=== PATIENT | male | born 1975 | race American Indian/Alaskan Native ===

== ENCOUNTER 2016-10-14 10:59 | Emergency (ER) | payer MEDICARE, OTHER ==
[2016-10-14 11:12] VITALS: BMI 29.5
[2016-10-14 11:15] VITALS: RESP 16; TEMP 98.1
--- NOTE | 2016-10-14 12:41 | ED PDOC ---
Arrival/HPI - General Chief Complaint: Back Pain Time Seen by Provider: 10/14/16 11:55 Historian: Patient - History of Present Illness Narrative History of Present Illness (Text): 10/14/16 13:08 41yr old male presents today with low back pain. 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 pt states he took his OxyContin at home with some relief. Patient states she was feeling better and went back to work and then was lifting some heavy stuff at work and the back flared up again. He denies numbness weakness or tingling in the 70s. No chest pain or shortness of breath. No abdominal pain. No urinary symptoms. Patient denies bladder or bowel incontinence. No other complaints Past Medical History - Provider Review Nursing Documentation Reviewed: Yes - Travel History Have you recently traveled outside [place] w/in the past 3 mons?: No - Past History Past History: No Previous - Infectious Disease Hx of Infectious Diseases: None - Tetanus Immunization Tetanus Immunization: Unknown - Past Medical History Past Medical History: No Previous - Cardiac Hx Cardiac Disorders: Yes Hx Angina: No Hx Cardiac Arrhythmia: No Hx Circulatory Problems: No Hx Congestive Heart Failure: No Hx Heart Murmur: No Hx Heart Transplant: No Hx Hypertension: Yes Hx Internal Defibrillator: No Hx Mitral Valve Prolapse: No Hx Pacemaker: No Hx Peripheral Edema: No Hx Peripheral Vascular Disease: No - Pulmonary Hx Respiratory Disorders: No Hx Asthma: No Hx Bronchitis: No Hx Chronic Obstructive Pulmonary Disease (COPD): No Hx Emphysema: No Hx Pneumonia: No Hx Respiratory Aspiration: No Hx Respiratory Tract Infection: No Hx Sleep Apnea: No Hx Tuberculosis: No - Neurological Hx Neurological Disorder: No Hx Alzheimer's Disease: No HX Cerebrovascular Accident: No Hx Dementia: No Hx Dizziness: No Hx Meningitis: No Hx Migraine: No Hx Parkinson's Disease: No Hx Seizures: No Hx Transient Ischemic Attacks (TIA): No - HEENT Hx HEENT Disorder: No Hx Blind: No Hx Cataracts: No Hx Deafness: No Hx Difficulty Chewing: No Hx Epistaxis: No Hx Glaucoma: No Hx Macular Degeneration: No - Renal Hx Renal Disorder: No Hx Kidney Stones: No Hx Neurogenic Bladder: No Hx Pyelonephritis: No Hx Renal Cancer: No Hx Renal Failure: No - Endocrine/Metabolic Hx Endocrine Disorders: No Hx Adrenal Cancer: No Hx Diabetes Insipidus: No Hx Diabetes Mellitus Type 1: No Hx Diabetes Mellitus Type 2: No Hx Hyperthyroidism: No Hx Hypothyroidism: No Hx Systemic Lupus Erythematosus: No - Hematological/Oncological Hx Blood Disorders: No Hx AIDS: No Hx Anemia: No Hx Cancer: No Hx Chemotherapy: No Hx Cirrhosis: No Hx Hemophilia: No Hx Hepatitis A: No Hx Hepatitis B: No Hx Hepatitis C: No Hx Metastasis: No Hx Shingles: No Hx Sickle Cell Disease: No Hx Unexplained Bleeding: No - Integumentary Hx Dermatological Disorder: No Hx Basal Cell Carcinoma: No Hx Eczema: No Hx Melanoma: No Hx Psoriasis: No Hx Squamous Cell Carcinoma: No - Musculoskeletal/Rheumatological Hx Musculoskeletal Disorders: Yes Hx Arthritis: No Hx Back Pain: Yes Hx Degenerative Joint Disease: No Hx Falls: No Hx Fractures: No Hx Gout: No Hx Herniated Disk: No Hx Myasthenia Gravis: No Hx Osteoarthritis: No Hx Osteomyelitis: No Hx Osteoporosis: No Hx Rhabdomyolysis: No Hx Spinal Stenosis: No Hx Unsteady Gait: No - Gastrointestinal Hx Gastrointestinal Disorders: No Hx Colostomy: No Hx Crohn's Disease: No Hx Diverticulitis: No Hx Gall Bladder Disease: No Hx Gastroesophageal Reflux: No Hx Ileostomy: No Hx Liver Failure: No Hx Pancreatitis: No HX Swallowing Problems: No - Genitourinary/Gynecological Hx Genitourinary Disorders: No Hx Hematuria: No Hx Incontinence: No Hx Prostate Problems: No Hx Reproductive Disorders: No Hx Sexually Transmitted Diseases: No Hx Urinary Tract Infection: No - Psychiatric Hx Psychophysiologic Disorder: Yes Hx Bipolar Disorder: Yes Hx Depression: Yes Hx Schizophrenia: Yes Hx Substance Use: No - Past Surgical History Past Surgical History: No Previous - Surgical History Hx Amputation: No Hx Appendectomy: No Hx Cardiac Catheterization: No Hx Cholecystectomy: No Hx Coronary Stent: No Hx Gastric Bypass Surgery: No Hx Hysterectomy: No Hx Joint Replacement: No Hx Kidney Transplant: No Hx Liver Transplant: No Hx Mastectomy: No Hx Musculoskeletal Surgery: No Hx Open Heart Surgery: No Hx Orthopedic Surgery: No Hx Splenectomy: No Hx Valve Replacement: No - Anesthesia Hx Anesthesia: No - Suicidal Assessment Feels Threatened In Home Enviroment: No Family/Social History - Physician Review Nursing Documentation Reviewed: Yes Family/Social History: Unknown Family HX Smoking Status: Heavy Smoker > 10 Cigarettes Daily Hx Alcohol Use: No Amount per day: 1 Hx Substance Use: No Hx Substance Use Treatment: No Allergies/Home Meds Allergies/Adverse Reactions: Allergies Penicillins Allergy (Verified 10/14/16 11:11) ANAPHYLAXIS Home Medications: Home Meds Medication Instructions Recorded Confirmed Risperidone [Risperdal] 2 mg PO DAILY 08/31/16 10/14/16 amLODIPine [Norvasc] 5 mg PO DAILY 08/31/16 10/14/16 Cyclobenzaprine [Flexeril] 10 mg PO PRN PRN 10/14/16 10/14/16 oxyCODONE [oxyCODONE Immediate 30 mg PO TID 10/14/16 10/14/16 Release Tab] Review of Systems - Review of Systems Constitutional: absent: Fatigue, Fevers Respiratory: absent: SOB, Cough Cardiovascular: absent: Chest Pain, Palpitations Gastrointestinal: absent: Abdominal Pain, Diarrhea, Nausea, Vomiting Genitourinary Male: absent: Dysuria, Frequency, Hematuria Musculoskeletal: Back Pain. absent: Arthralgias, Neck Pain Skin: absent: Rash, Pruritis Neurological: absent: Headache, Dizziness Psychiatric: absent: Anxiety, Depression Physical Exam Vital Signs Reviewed: Yes Vital Signs Temp Pulse Resp BP Pulse Ox 10/14/16 11:11 98.1 F 94 H 16 135/90 98 Temperature: Afebrile Blood Pressure: Normal Pulse: Regular Respiratory Rate: Normal Appearance: Positive for: Well-Appearing, Non-Toxic, Comfortable Pain Distress: None Mental Status: Positive for: Alert and Oriented X 3 - Systems Exam Head: Present: Atraumatic Neck: Present: Normal Range of Motion Respiratory/Chest: Present: Clear to Auscultation, Good Air Exchange. No: Respiratory Distress, Accessory Muscle Use Cardiovascular: Present: Regular Rate and Rhythm, Normal S1, S2. No: Murmurs Abdomen: Present: Normal Bowel Sounds. No: Tenderness, Distention, Peritoneal Signs Back: Present: Normal Inspection, Midline Tenderness, Paraspinal Tenderness. No : Pain with Leg Raise Upper Extremity: Present: Normal Inspection Lower Extremity: Present: Normal Inspection Neurological: Present: GCS=15, Speech Normal, Normal Sensory Function, Gait Normal Skin: Present: Warm, Dry, Normal Color. No: Rashes Psychiatric: Present: Alert, Oriented x 3 Medical Decision Making ED Course and Treatment: 10/14/16 13:10 Patient nontoxic well-appearing in no distress with stable vital signs. Toradol, Flexeril Patient reassessment: Feeling better with medications ambulating with a steady gait. Muscle strength 5 out of 5 bilaterally. I advised to followup with the orthopedist within the next 2 days. Return if symptoms worsen persist or new symptoms develop Patient verbalizes understanding of discharge instructions and need for immediate followup. Impression: Back pain Motrin every 6 hours as needed for pain Flexeril one tablet every 8 hours as needed for muscle spasms: May cause drowsiness Followup with the orthopedist within the next 2 days Followup with primary care physician within the next 2 days Return if symptoms worsen persist or if new symptoms develop - Medication Orders Current Medication Orders: Discontinued Medications Cyclobenzaprine HCl (Flexeril) 10 mg PO STAT STA Stop: 10/14/16 11:56 Last Admin: 10/14/16 12:21 Dose: 10 MG Ketorolac Tromethamine (Toradol) 60 mg IM STAT STA Stop: 10/14/16 11:56 Last Admin: 10/14/16 12:21 Dose: 60 MG IM Administration Charges Document 10/14/16 12:21 MD (Rec: 10/14/16 12:21 [id number]) Charges for Administration # of IM Administrations 1 Disposition/Present on Arrival - Present on Arrival Any Indicators Present on Arrival: No History of DVT/PE: No History of Uncontrolled Diabetes: No Urinary Catheter: No History of Decub. Ulcer: No History Surgical Site Infection Following: None - Disposition Have Diagnosis and Disposition been Completed?: Yes Diagnosis: Back pain Disposition: HOME/ ROUTINE Disposition Time: 12:29 Patient Plan: Discharge Patient Problems: Current Active Problems Problem Status Diagnosed Back pain Acute Condition: GOOD Discharge Instructions (ExitCare): Back Pain (ED) Additional Instructions: Motrin every 6 hours as needed for pain Flexeril one tablet every 8 hours as needed for muscle spasms: May cause drowsiness Followup with the orthopedist within the next 2 days Followup with primary care physician within the next 2 days Return if symptoms worsen persist or if new symptoms develop Prescriptions: Cyclobenzaprine [Cyclobenzaprine HCl] 10 mg PO Q8 #10 tab Ibuprofen [Motrin] 600 mg PO Q6H PRN #20 tab PRN Reason: pain/fever reduction Referrals: Adan Traore JD, MD [Primary Care Provider] - Follow up with primary Todd Salguero MD [Staff Provider] - Follow up with primary Angel Clemens III, MD [Medical Doctor] - Follow up with primary Forms: WORK NOTE
[2016-10-14 13:10] VITALS: BP 130/88; PULSE 88; O2SAT 97
== END 2016-10-14 13:11 | disposition home or self-care (01) ==
LOC: ED 10:59
DX: M54.5 Low back pain (principal)
CPT/HCPCS: 96372; 99283; J1885

== ENCOUNTER 2017-02-04 14:03 | Emergency (ER) | payer MEDICAID, MEDICARE ==
[2017-02-04 14:05] VITALS: BMI 29.3
[2017-02-04 14:09] VITALS: BP 148/94; PULSE 87; RESP 18; TEMP 98.1; O2SAT 96
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
== END 2017-02-04 14:55 | disposition left against medical advice (07) ==
LOC: ED 14:03
DX: Z04.71 Encounter for examination and observation following alleged adult physical abuse (principal); Y04.8XXA Assault by other bodily force, initial encounter; Y92.009 Unspecified place in unspecified non-institutional (private) residence as the place of occurrence of the external cause

== ENCOUNTER 2017-04-28 11:51 | Inpatient (IN) | payer MEDICARE, MEDICAID ==
[2017-04-28 11:53] VITALS: BMI 29.3
--- NOTE | 2017-04-28 11:56 | ED PDOC ---
Arrival/HPI - General Chief Complaint: Psychiatric Evaluation Time Seen by Provider: 04/28/17 11:53 Historian: Patient - History of Present Illness Narrative History of Present Illness (Text): 04/28/17 11:54 41 year old male, pmh including htn, psychiatric history including cocaine abuse/depression/bipolar, penicillin allergy, complaining of feeling depression. Pt. stated that he has chronic depression with bipolar, started to drink couple cans of bear this morning, no night sweat, no rash, no homicidal or suicidal ideation, no auditory or visual hallucination, no other medical or psychological complaint. Past Medical History - Provider Review Nursing Documentation Reviewed: Yes - Past History Past History: No Previous - Infectious Disease Hx of Infectious Diseases: None - Tetanus Immunization Tetanus Immunization: Unknown - Past Medical History Past Medical History: No Previous - Cardiac Hx Cardiac Disorders: Yes Hx Angina: No Hx Cardiac Arrhythmia: No Hx Circulatory Problems: No Hx Congestive Heart Failure: No Hx Heart Murmur: No Hx Heart Transplant: No Hx Hypertension: Yes Hx Internal Defibrillator: No Hx Mitral Valve Prolapse: No Hx Pacemaker: No Hx Peripheral Edema: No Hx Peripheral Vascular Disease: No - Pulmonary Hx Respiratory Disorders: No Hx Asthma: No Hx Bronchitis: No Hx Chronic Obstructive Pulmonary Disease (COPD): No Hx Emphysema: No Hx Pneumonia: No Hx Respiratory Aspiration: No Hx Respiratory Tract Infection: No Hx Sleep Apnea: No Hx Tuberculosis: No - Neurological Hx Neurological Disorder: No Hx Alzheimer's Disease: No HX Cerebrovascular Accident: No Hx Dementia: No Hx Dizziness: No Hx Meningitis: No Hx Migraine: No Hx Parkinson's Disease: No Hx Seizures: No Hx Transient Ischemic Attacks (TIA): No - HEENT Hx HEENT Disorder: No Hx Blind: No Hx Cataracts: No Hx Deafness: No Hx Difficulty Chewing: No Hx Epistaxis: No Hx Glaucoma: No Hx Macular Degeneration: No - Renal Hx Renal Disorder: No Hx Kidney Stones: No Hx Neurogenic Bladder: No Hx Pyelonephritis: No Hx Renal Cancer: No Hx Renal Failure: No - Endocrine/Metabolic Hx Endocrine Disorders: No Hx Adrenal Cancer: No Hx Diabetes Insipidus: No Hx Diabetes Mellitus Type 1: No Hx Diabetes Mellitus Type 2: No Hx Hyperthyroidism: No Hx Hypothyroidism: No Hx Systemic Lupus Erythematosus: No - Hematological/Oncological Hx Blood Disorders: No Hx AIDS: No Hx Anemia: No Hx Cancer: No Hx Chemotherapy: No Hx Cirrhosis: No Hx Hemophilia: No Hx Hepatitis A: No Hx Hepatitis B: No Hx Hepatitis C: No Hx Metastasis: No Hx Shingles: No Hx Sickle Cell Disease: No Hx Unexplained Bleeding: No - Integumentary Hx Dermatological Disorder: No Hx Basal Cell Carcinoma: No Hx Eczema: No Hx Melanoma: No Hx Psoriasis: No Hx Squamous Cell Carcinoma: No - Musculoskeletal/Rheumatological Hx Musculoskeletal Disorders: Yes Hx Arthritis: No Hx Back Pain: Yes Hx Degenerative Joint Disease: No Hx Falls: No Hx Fractures: No Hx Gout: No Hx Herniated Disk: No Hx Myasthenia Gravis: No Hx Osteoarthritis: No Hx Osteomyelitis: No Hx Osteoporosis: No Hx Rhabdomyolysis: No Hx Spinal Stenosis: No Hx Unsteady Gait: No - Gastrointestinal Hx Gastrointestinal Disorders: No Hx Colostomy: No Hx Crohn's Disease: No Hx Diverticulitis: No Hx Gall Bladder Disease: No Hx Gastroesophageal Reflux: No Hx Ileostomy: No Hx Liver Failure: No Hx Pancreatitis: No HX Swallowing Problems: No - Genitourinary/Gynecological Hx Genitourinary Disorders: No Hx Hematuria: No Hx Incontinence: No Hx Prostate Problems: No Hx Reproductive Disorders: No Hx Sexually Transmitted Diseases: No Hx Urinary Tract Infection: No - Psychiatric Hx Psychophysiologic Disorder: Yes Hx Bipolar Disorder: Yes Hx Depression: Yes Hx Schizophrenia: Yes Hx Substance Use: No - Past Surgical History Past Surgical History: No Previous - Surgical History Hx Amputation: No Hx Appendectomy: No Hx Cardiac Catheterization: No Hx Cholecystectomy: No Hx Coronary Stent: No Hx Gastric Bypass Surgery: No Hx Hysterectomy: No Hx Joint Replacement: No Hx Kidney Transplant: No Hx Liver Transplant: No Hx Mastectomy: No Hx Musculoskeletal Surgery: No Hx Open Heart Surgery: No Hx Orthopedic Surgery: No Hx Splenectomy: No Hx Valve Replacement: No - Anesthesia Hx Anesthesia: No - Suicidal Assessment Feels Threatened In Home Enviroment: No Family/Social History - Physician Review Nursing Documentation Reviewed: Yes Family/Social History: Unknown Family HX Smoking Status: Heavy Smoker > 10 Cigarettes Daily Hx Alcohol Use: No Amount per day: 1 Hx Substance Use: No Hx Substance Use Treatment: No Allergies/Home Meds Allergies/Adverse Reactions: Allergies Penicillins Allergy (Verified 04/28/17 12:11) ANAPHYLAXIS Home Medications: Home Meds Medication Instructions Recorded Confirmed Unobtainable 04/28/17 04/28/17 Review of Systems - Review of Systems Constitutional: absent: Fatigue, Fevers Eyes: absent: Vision Changes ENT: absent: Hearing Changes Respiratory: absent: SOB, Cough Cardiovascular: absent: Chest Pain, Syncope Gastrointestinal: absent: Abdominal Pain, Diarrhea, Nausea, Vomiting Neurological: absent: Headache, Dizziness Psychiatric: Depression. absent: Suicidal Ideation Physical Exam Vital Signs Reviewed: Yes Vital Signs Temp Pulse Resp BP Pulse Ox 04/28/17 12:28 98.6 F 88 16 138/78 100 Temperature: Afebrile Blood Pressure: Normal Pulse: Regular Respiratory Rate: Normal Appearance: Positive for: Well-Appearing, Non-Toxic, Comfortable Pain Distress: None Mental Status: Positive for: Alert and Oriented X 3 - Systems Exam Head: Present: Atraumatic, Normocephalic Pupils: Present: PERRL Extroacular Muscles: Present: EOMI Conjunctiva: Present: Normal Mouth: Present: Moist Mucous Membranes Neck: Present: Normal Range of Motion Respiratory/Chest: Present: Clear to Auscultation, Good Air Exchange. No: Respiratory Distress, Accessory Muscle Use Cardiovascular: Present: Regular Rate and Rhythm, Normal S1, S2. No: Murmurs Abdomen: Present: Normal Bowel Sounds. No: Tenderness, Distention, Peritoneal Signs Back: Present: Normal Inspection Upper Extremity: Present: Normal Inspection. No: Cyanosis, Edema Lower Extremity: Present: Normal Inspection. No: Edema Neurological: Present: GCS=15, Speech Normal, Motor Func Grossly Intact, Gait Normal, Memory Normal Skin: Present: Warm, Dry, Normal Color. No: Rashes Psychiatric: Present: Alert, Oriented x 3, Normal Insight, Normal Concentration Medical Decision Making ED Course and Treatment: 04/28/17 12:04 -labs/ua/uds/alcohol level -ekg/chest xray -PES notififed and reassess 04/28/17 13:08 -EKG: NSR @ 74 BPM, no ST elevation or depression, T wave inversion noted on the lead III. -Chest xray: no active disease -Labs are non-significant except alcohol 95 -Urinalysis show no UTI -UDS show +cocaine. -Pt. is medically clear and stable at this time for the psychiatric evaluation. 04/28/17 13:40 -Pt. evaluated by the PES Anaise, need to be admitted and the patient agreed to be admitted, need to admit to Dr. Mariela Weiss discussed with Dr. Hester and he will put in the admission. - Lab Interpretations Lab Results: 04/28/17 12:20 04/28/17 12:20 Lab Results 04/28/17 12:20: Alcohol, Quantitative 95 H 04/28/17 12:20: Salicylates < 1 L, Acetaminophen < 10.0 L 04/28/17 12:20: Urine Opiates Screen Negative, Urine Methadone Screen Negative, Ur Barbiturates Screen Negative, Ur Phencyclidine Scrn Negative, Ur Amphetamines Screen Negative, U Benzodiazepines Scrn Negative, U Oth Cocaine Metabols Positive H, U Cannabinoids Screen Negative 04/28/17 12:20: Sodium 146, Potassium 4.0, Chloride 108 H, Carbon Dioxide 26, Anion Gap 16, BUN 12, Creatinine 0.9, Est GFR ( Amer) > 60, Est GFR (Non- Af Amer) > 60, Random Glucose 101, Calcium 9.5, Total Bilirubin 0.8, AST 28, ALT 41, Alkaline Phosphatase 93, Total Protein 7.4, Albumin 4.4, Globulin 3.0, Albumin/Globulin Ratio 1.5 04/28/17 12:20: Urine Color Light yellow, Urine Appearance Clear, Urine pH 6.0, Ur Specific [place] <= 1.005, Urine Protein Negative, Urine Glucose (UA) Negative, Urine Ketones Negative, Urine Blood Negative, Urine Nitrate Negative, Urine Bilirubin Negative, Urine Urobilinogen 0.2, Ur Leukocyte Esterase Negative 04/28/17 12:20: WBC 5.0, RBC 4.06, Hgb 12.7 L, Hct 38.4 L, MCV 94.6, MCH 31.3, MCHC 33.1, RDW 12.8, Plt Count 224, MPV 9.6, Gran % 47.9 L, Lymph % (Auto) 41.3 H, Bell % (Auto) 7.0 H, Eos % (Auto) 3.4, Baso % (Auto) 0.4, Gran # 2.40, Lymph # 2.1, Bell # 0.4, Eos # 0.2, Baso # 0.02 I have reviewed the lab results: Yes Interpretation: Abnormal lab values (alcohol 95) - RAD Interpretation Radiology Orders: 04/28/17 12:15 CHEST PORTABLE [RAD] Stat HISTORY: medical clearance COMPARISON: 01/15/2013 FINDINGS: LUNGS: No active pulmonary disease. PLEURA: No significant pleural effusion identified, no pneumothorax apparent. CARDIOVASCULAR: Normal. OSSEOUS STRUCTURES: No significant abnormalities. VISUALIZED UPPER ABDOMEN: Normal. OTHER FINDINGS: None. IMPRESSION: No active disease. 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 Interpreted by ED Physician: Yes Type: 12 lead EKG - PA / LEATHER STRETCHER / Resident Statement MD/DO has reviewed & agrees with the documentation as recorded. Disposition/Present on Arrival - Present on Arrival Any Indicators Present on Arrival: No History of DVT/PE: No History of Uncontrolled Diabetes: No Urinary Catheter: No History of Decub. Ulcer: No History Surgical Site Infection Following: None - Disposition Have Diagnosis and Disposition been Completed?: Yes Diagnosis: Drug abuse, Bipolar disorder Disposition: HOSPITALIZED Disposition Time: 13:41 Patient Plan: Admission Condition: STABLE Referrals: PCP,NO [Primary Care Provider] - Follow up with primary Forms: [employer] (Citizen [place])
[2017-04-28 12:35] VITALS: O2SAT 100
--- NOTE | 2017-04-28 12:35 | RAD ---
HISTORY: medical clearance COMPARISON: 01/15/2013 FINDINGS: LUNGS: No active pulmonary disease. PLEURA: No significant pleural effusion identified, no pneumothorax apparent. CARDIOVASCULAR: Normal. OSSEOUS STRUCTURES: No significant abnormalities. VISUALIZED UPPER ABDOMEN: Normal. OTHER FINDINGS: None. IMPRESSION: No active disease.
[2017-04-28 12:41] LABS: ALB/GLOB RATIO 1.5 (1.1-1.8); ALKALINE PHOSPHATASE 93 U/L (38-126); ALT/SGPT 41 U/L (7-56); AST/SGOT 28 U/L (17-59); BILIRUBIN,TOTAL 0.8 mg/dL (0.2-1.3); BLOOD UREA NITROGEN 12 mg/dL (7-21); CALCIUM 9.5 mg/dL (8.4-10.5); CARBON DIOXIDE 26 mmol/L (21-33); CHLORIDE 108 mmol/L (98-107); GFR AFRICAN-AMERICAN > 60; GLUCOSE,RANDOM 101 mg/dL (70-110); SODIUM 146 mmol/L (132-148); TOTAL PROTEIN 7.4 g/dL (5.8-8.3)
[2017-04-28 12:42] LABS: URINE BILIRUBIN NEGATIVE (NEGATIVE); URINE BLOOD NEGATIVE (NEGATIVE); URINE GLUCOSE (UA) NEGATIVE (NEGATIVE); URINE KETONE NEGATIVE (NEGATIVE); URINE LEUKOCYTE ESTERASE NEGATIVE Leu/uL (NEGATIVE); URINE PROTEIN NEGATIVE mg/dL (<30 mg/dL); URINE UROBILINOGEN 0.2 E.U./dL (<1 E.U./dL)
[2017-04-28 12:43] LABS: BASO # 0.02 K/mm3 (0.0-2.0); BASO % 0.4 % (0.0-3.0); EOS # 0.2 (0.0-0.7); EOS % 3.4 % (1.5-5.0); GRAN # 2.4 (1.4-6.5); GRAN % 47.9 % (50.0-68.0); HEMATOCRIT 38.4 % (42.0-52.0); LYMPH # 2.1 (1.2-3.4); LYMPH % 41.3 % (22.0-35.0); MEAN CELL VOLUME 94.6 fl (80.0-105.0); MEAN CORPUSCULAR HEMOGLOBIN 31.3 pg (25.0-35.0); MEAN CORPUSCULAR HGB CONC 33.1 g/dl (31.0-37.0); MEAN PLATELET VOLUME 9.6 fl (7.0-11.0); MONO # 0.4 (0.1-0.6); RED CELL DISTRIBUTION WIDTH 12.8 % (11.5-14.5)
[2017-04-28 12:44] LABS: URINE APPEARANCE CLEAR (CLEAR); URINE COLOR LIGHT YELLOW (YELLOW)
[2017-04-28] MEDS ORDERED: Alum-Mag Hydrox-Simethicone Susp (30 mL) PO PRN (16:24)
[2017-04-28] MEDS ORDERED: Magnesium Hydroxide Susp 30 ml UD PO PRN (16:24)
[2017-04-28] MEDS: Multivitamin With Minerals Tab PO SCH (16:58)
--- NOTE | 2017-04-28 19:05 | PCM.BM ---
<Xin Arana - Last Filed: 04/28/17 19:02> Treatment Plan Problems - Problems identified on initial assessmt DEPRESSION Date Initiated: 04/28/17 Time Initiated: 19:00 Assessment reference: NA Status: Active Priority: 1 ALCOHOL ABUSE Date Initiated: 04/28/17 Time Initiated: 19:00 Assessment reference: NA Status: Active Priority: 2 COCCAINE ABUSE Date Initiated: 04/28/17 Time Initiated: 19:00 Assessment reference: NA Status: Active Priority: 3 Treatment assets and liabiliti Patient Assests: cooperative, ADL independent, physically healthy, good support system, negotiates basic needs, cognitively intact Patient Liabilities: substance abuse - Milieu Protocol Maintain good personal hygiene: daily Encourage regular showers, daily Remind patient to perform daily oral care, daily Assist patient to perform ADL's Maintain personal safety: every shift Educate patient to report safety concerns to staff, every shift Monitor environment for contraband/sharps Medication safety: Monitor for expected outcome, potential side effects: every shift, Assess barriers to learning: every shift, Assess readiness for medication education: every shift Discharge/Continuing Care - Education Needs Education Needs: Patient Medication, Patient Diagnosis/Disease Process, Patient Coping Skills, Patient Community resources, Patient Activities of Daily Living, Patient Nutrition, Patient Health Practices/Safety, Patient Personal Hygiene/ Grooming, Patient Aftercare Safety Plan - Discharge Discharge Criteria: Free of Suicidal thoughts, Free of agitation, Normal sleep pattern, Ability to care for self, No longer exhibiting s/s of withdrawal, Reduction of target symptoms Discharge to:: Home, Substance Abuse Rehab <Mariela Huitron - Last Filed: 04/29/17 10:19> - Diagnosis (1) Bipolar disorder Status: Acute Interventions: 04/29/17 10:19 Psychoeducation Psychopharmacology/adjustment of medications as needed/ monitoring possible side effects Monitor blood level of mood stabilizers Evaluate pt on daily basis Compliance with medications and follow up appointments Suicide and homicide risk assessment and prevention, coping strategies, safety plan Relapse prevention Reduction of symptoms Improve functional status Family involvement As outpatient: cognitive behavioral therapy (2) Drug abuse Status: Acute Interventions: 04/29/17 10:19 Monitoring withdrawal symptoms Medical detoxification Pharmacotherapy for alcohol/benzos/opioid dependence Maintaining sobriety Relapse prevention Possible rehabilitation Motivational interviewing 12-step programs: AA meetings <Ney Cruz - Last Filed: 04/29/17 13:30> Treatment Plan Problems - Problems identified on initial assessmt Ineffective Coping Date Initiated: 04/29/17 Time Initiated: 13:31 Assessment reference: NA Status: Active Priority: 1 Medication Nonadherence Date Initiated: 04/29/17 Time Initiated: 13:31 Assessment reference: NA Status: Active Priority: 2 Knowledge Deficit: Substance Abuse Date Initiated: 04/29/17 Time Initiated: 13:31 Assessment reference: NA Status: Active Priority: 3 Knowdlege Deficit: Alcohol Abuse Date Initiated: 04/29/17 Time Initiated: 13:32 Assessment reference: NA Status: Active Priority: 4 Treatment assets and liabiliti Patient Assests: cooperative, ADL independent, physically healthy, cognitively intact Patient Liabilities: relationship conflicts, substance abuse - Milieu Protocol Maintain good personal hygiene: daily Encourage regular showers, daily Remind patient to perform daily oral care Maintain personal safety: every shift Educate patient to report safety concerns to staff, every shift Monitor environment for contraband/sharps Medication safety: Monitor for expected outcome, potential side effects: every shift, Assess barriers to learning: every shift, Assess readiness for medication education: every shift Discharge/Continuing Care - Education Needs Education Needs: Patient Medication, Patient Diagnosis/Disease Process, Patient Coping Skills - Discharge Discharge Criteria: Tolerates medication w/o severe side effects, Normal sleep pattern, Ability to care for self, No longer exhibiting s/s of withdrawal Discharge to:: Home <Zeus Sandhu - Last Filed: 04/29/17 13:42>
--- NOTE | 2017-04-28 19:45 | CARD ---
APPROVED REPORT EKG Measurement Heart [id number] <Conclusion> Normal sinus rhythm Normal ECG
[2017-04-29 08:14] LABS: CHOLESTEROL 124 mg/dL (130-200)
[2017-04-29 08:22] LABS: FREE T4 0.87 ng/dL (0.78-2.19)
[2017-04-29 08:36] LABS: THYROID STIMULATING HORMONE 1.09 mIU/mL (0.46-4.68)
[2017-04-29] MEDS: Multivitamin With Minerals Tab PO SCH (08:45)
--- NOTE | 2017-04-29 13:38 | CP.PCM.CON ---
<Zeus Sandhu - Last Filed: 04/29/17 13:45> History of Present Illness - History of Present Illness History of Present Illness: Medicine Consult note 41M, pmhx htn, psychiatric history including cocaine abuse/depression/bipolar, complaining of feeling depressed. Pt. stated that he has chronic depression with bipolar. Drank multiple bottles of hard liquor and did cocaine the day before. Pt states that home life is stressful. Denies F/C CP/SOB N/V/D, auditory and visual hallucination. PMH: Bipolar, Chronic back pain, PSH: Epidural ALL: PCN- Rash SocialHx: multiple drinks of ETOH per day. Cocaine use. recreational marijuana Review of Systems - Review of Systems All systems: reviewed and no additional remarkable complaints except - Constitutional Constitutional: As Per HPI Past Patient History - Infectious Disease Hx of Infectious Diseases: None - Tetanus Immunizations Tetanus Immunization: Unknown - Past Medical History & Family History Past Medical History?: Yes - Past Social History Smoking Status: Heavy Smoker > 10 Cigarettes Daily - CARDIAC Hx Cardiac Disorders: Yes Hx Angina: No Hx Cardia Arrhythmia: No Hx Circulatory Problems: No Hx Congestive Heart Failure: No Hx Heart Murmur: No Hx Heart Transplant: No Hx Hypertension: Yes Hx Internal Defibrillator: No Hx Mitral Valve Prolapse: No Hx Pacemaker: No Hx Peripheral Edema: No Hx Peripheral Vascular Disease: No - PULMONARY Hx Respiratory Disorders: No Hx Asthma: No Hx Bronchitis: No Hx Chronic Obstructive Pulmonary Disease (COPD): No Hx Emphysema: No Hx Pneumonia: No Hx Respiratory Aspiration: No Hx Respiratory Tract Infection: No Hx Sleep Apnea: No Hx Tuberculosis: No - NEUROLOGICAL Hx Neurological Disorder: No Hx Alzheimer's Disease: No HX Cerebrovascular Accident: No Hx Dementia: No Hx Dizziness: No Hx Meningitis: No Hx Migraine: No Hx Parkinson's Disease: No Hx Seizures: No Hx Transient Ischemic Attacks (TIA): No - HEENT Hx HEENT Problems: No Hx Cataracts: No Hx Deafness: No Hx Difficulty Chewing: No Hx Epistaxis: No Hx Glaucoma: No Hx Macular Degeneration: No - RENAL Hx Chronic Kidney Disease: No Hx Kidney Stones: No Hx Neurogenic Bladder: No Hx Pyelonephritis: No Hx Renal (Kidney) Cancer: No Hx Renal Failure: No - ENDOCRINE/METABOLIC Hx Endocrine Disorders: No Hx Adrenal Cancer: No Hx Diabetes Insipidus: No Hx Diabetes Mellitus Type 1: No Hx Diabetes Mellitus Type 2: No Hx Hyperthyroidism: No Hx Hypothyroidism: No Hx Systemic Lupus Erythematosus: No - HEMATOLOGICAL/ONCOLOGICAL Hx Blood Disorders: No Hx AIDS: No Hx Anemia: No Hx Cancer: No Hx Chemotherapy: No Hx Cirrhosis: No Hx Hemophilia: No Hx Hepatitis A: No Hx Hepatitis B: No Hx Hepatitis C: No Hx Metastesis: No Hx Shingles: No Hx Sickle Cell Disease: No Hx Unexplained Bleeding: No - INTEGUMENTARY Hx Dermatological Problems: No Hx Basil Cell: No Hx Eczema: No Hx Melanoma: No Hx Psoriasis: No Hx Squamous Cell: No - MUSCULOSKELETAL/RHEUMATOLOGICAL Hx Musculoskeletal Disorders: Yes Hx Arthritis: No Hx Back Pain: Yes Hx Degenerative Joint Disease: No Hx Falls: No Hx Fractures: No Hx Gout: No Hx Herniated Disk: No Hx Myasthenia Gravis: No Hx Osteoarthritis: No Hx Osteomyelitis: No Hx Osteoporosis: No Hx Rhabdomyolysis: No Hx Spinal Stenosis: No Hx Unsteady Gait: No - GASTROINTESTINAL Hx Gastrointestinal Disorders: No Hx Colostomy: No Hx Crohn's Disease: No Hx Diverticulitis: No Hx Gall Bladder Disease: No Hx Gastroesophageal Reflux: No Hx Ileostomy: No Hx Liver Failure: No Hx Pancreatitis: No HX Swallowing Problems: No - GENITOURINARY/GYNECOLOGICAL Hx Genitourinary Disorders: No Hx Hematuria: No Hx Incontinence: No Hx Prostate Problems: No Hx Reproductive Disorders: No Hx Sexually Transmitted Disorders: No Hx Urinary Tract Infection: No - PSYCHIATRIC Hx Depression: Yes Hx Substance Use: Yes - SURGICAL HISTORY Hx Amputation: No Hx Appendectomy: No Hx Cardiac Catheterization: No Hx Cholecystectomy: No Hx Coronary Stent: No Hx Gastric Bypass Surgery: No Hx Hysterectomy: No Hx Joint Replacement: No Hx Kidney Transplant: No Hx Liver Transplant: No Hx Mastectomy: No Hx Musculoskeletal Surgery: No Hx Open Heart Surgery: No Hx Orthopedic Surgery: No Hx Splenectomy: No Hx Valve Replacement: No - ANESTHESIA Hx Anesthesia: No Meds Allergies/Adverse Reactions: Allergies Allergy/AdvReac Type Severity Reaction Status Date / Time Penicillins Allergy ANAPHYLAXIS Verified 04/28/17 19:07 - Medications Medications: Current Medications Acetaminophen (Tylenol 325mg Tab) 650 mg PO Q4 PRN PRN Reason: Pain, moderate (4-7) Last Admin: 04/28/17 16:56 Dose: 650 mg Al Hydrox/Mg Hydrox/Simethicone (Maalox Plus 30 Ml) 30 ml PO DAILY PRN PRN Reason: Upset Stomach Benztropine Mesylate (Cogentin) 0.5 mg PO TID [facility] Last Admin: 04/29/17 13:02 Dose: 0.5 mg Folic Acid (Folic Acid) 1 mg PO DAILY [facility] Last Admin: 04/29/17 08:44 Dose: 1 mg Lorazepam (Ativan) 2 mg PO QID [facility] PRN Reason: Protocol Last Admin: 04/29/17 13:02 Dose: 2 mg Lorazepam (Ativan) 2 mg PO Q6H PRN; Protocol PRN Reason: Anxiety Magnesium Hydroxide (Milk Of Magnesia) 30 ml PO DAILY PRN PRN Reason: Constipation Multivitamins/Minerals (Therapeutic-M Tab) 1 tab PO 0800 [facility] Last Admin: 04/29/17 08:45 Dose: 1 tab Nicotine (Nicoderm Cq) 1 patch TD DAILY [facility] Last Admin: 04/29/17 08:44 Dose: 1 patch Risperidone (Risperdal Tab) 0.5 mg PO TID [facility] PRN Reason: Protocol Last Admin: 04/29/17 13:02 Dose: 0.5 mg Thiamine HCl (Vitamin B1 Tab) 50 mg PO DAILY [facility] Last Admin: 04/29/17 08:44 Dose: 50 mg Trazodone HCl (Desyrel) 50 mg PO HS PRN PRN Reason: Insomnia Last Admin: 04/28/17 21:54 Dose: 50 mg Ziprasidone (Geodon Cap) 20 mg PO Q6H PRN; Protocol PRN Reason: Agitation Physical Exam - Constitutional Appears: Non-toxic, No Acute Distress - Eye Exam Eye Exam: EOMI. absent: Scleral icterus - ENT Exam ENT Exam: Mucous Membranes Moist - Respiratory Exam Respiratory Exam: absent: Accessory Muscle Use, Respiratory Distress - Cardiovascular Exam Cardiovascular Exam: +S1, +S2. absent: Bradycardia, Tachycardia - GI/Abdominal Exam GI & Abdominal Exam: Soft. absent: Distended, Tenderness - Extremities Exam Extremities exam: Positive for: normal inspection. Negative for: calf tenderness Additional comments: no signs of asterixis - Neurological Exam Neurological exam: Alert, Oriented x3 - Skin Skin Exam: Normal Color Results - Vital Signs Recent Vital Signs: Last Vital Signs Temp 97.2 F L 04/29/17 07:35 Pulse 58 L 04/29/17 07:35 Resp 16 04/29/17 07:35 BP 121/77 04/29/17 07:35 Pulse Ox 100 04/28/17 15:05 - Labs Result Diagrams: 04/28/17 12:20 04/28/17 12:20 Labs: Laboratory Results - last 24 hr 04/29/17 04/29/17 07:40 07:40 Triglycerides 91 Cholesterol 124 L LDL Cholesterol Direct 64 HDL Cholesterol 41 Free T4 0.87 TSH 3rd Generation 1.09 Assessment & Plan - Assessment and Plan (Free Text) Assessment: 41M hx of bipolar, depression, substance abuse admitted for SI Depression/Bipolar Disorder management per Psych team Substance abuse ETOH and Cocaine abuse Monitor for withdrawal symptoms Ativan PRN H/O HTN non compliant w/ medication in past during stay pt has not been hypertensive will continue to monitor Zeus Sandhu PGY1 <Nelson Vega - Last Filed: 04/30/17 14:27> Meds - Medications Medications: Current Medications Acetaminophen (Tylenol 325mg Tab) 650 mg PO Q4 PRN PRN Reason: Pain, moderate (4-7) Last Admin: 04/28/17 16:56 Dose: 650 mg Al Hydrox/Mg Hydrox/Simethicone (Maalox Plus 30 Ml) 30 ml PO DAILY PRN PRN Reason: Upset Stomach Benztropine Mesylate (Cogentin) 0.5 mg PO TID [facility] Last Admin: 04/30/17 13:13 Dose: 0.5 mg Folic Acid (Folic Acid) 1 mg PO DAILY [facility] Last Admin: 04/30/17 08:37 Dose: 1 mg Lorazepam (Ativan) 2 mg PO QID RODDY PRN Reason: Protocol Last Admin: 04/30/17 13:14 Dose: 2 mg Lorazepam (Ativan) 2 mg PO Q6H PRN; Protocol PRN Reason: Anxiety Magnesium Hydroxide (Milk Of Magnesia) 30 ml PO DAILY PRN PRN Reason: Constipation Multivitamins/Minerals (Therapeutic-M Tab) 1 tab PO 0800 [facility] Last Admin: 04/30/17 08:37 Dose: 1 tab Nicotine (Nicoderm Cq) 1 patch TD DAILY [facility] Last Admin: 04/30/17 08:36 Dose: 1 patch Risperidone (Risperdal Tab) 0.5 mg PO TID [facility] PRN Reason: Protocol Last Admin: 04/30/17 13:14 Dose: 0.5 mg Thiamine HCl (Vitamin B1 Tab) 50 mg PO DAILY R[facility]DY Last Admin: 04/30/17 08:37 Dose: 50 mg Trazodone HCl (Desyrel) 50 mg PO HS PRN PRN Reason: Insomnia Last Admin: 04/28/17 21:54 Dose: 50 mg Ziprasidone (Geodon Cap) 20 mg PO Q6H PRN; Protocol PRN Reason: Agitation Results - Vital Signs Recent Vital Signs: Last Vital Signs Temp 97.7 F 04/30/17 07:04 Pulse 60 04/30/17 07:04 Resp 20 04/30/17 07:04 BP 124/76 04/30/17 07:04 Pulse Ox 100 04/28/17 15:05 - Labs Result Diagrams: 04/28/17 12:20 04/28/17 12:20 Labs: Laboratory Results - last 24 hr 04/29/17 07:40 RPR Nonreactive Attending/Attestation - Attestation I have personally seen and examined this patient.: Yes I have fully participated in the care of the patient.: Yes I have reviewed all pertinent clinical information: Yes Notes (Text): 04/30/17 14:25 Patient was seen and examined with nuclear medicine medical director. Agreed with resident assessment and plan. 41 Yrs old male with PMH of HTN, psychiatric history including cocaine abuse/ depression/bipolar and non compliance with medication is admitted with depression and suicidal ideation. Patient blood pressure is normal with out any medications at this time. There is no acute medical issue at this time, we will sign off. Management plan was discussed in detail with patient Education was provided.
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
[2017-04-30 07:05] VITALS: RESP 20
[2017-04-30] MEDS: Multivitamin With Minerals Tab PO SCH (08:37)
--- NOTE | 2017-04-30 14:42 | PCM.BM ---
<Xin Arana - Last Filed: 04/30/17 14:39> Treatment assets and liabiliti Patient Assests: cooperative, ADL independent, physically healthy, cognitively intact Patient Liabilities: financial problems, substance abuse - Milieu Protocol Maintain good personal hygiene: daily Encourage regular showers, daily Remind patient to perform daily oral care, daily Assist patient to perform ADL's Maintain personal safety: every shift Educate patient to report safety concerns to staff, every shift Monitor environment for contraband/sharps Medication safety: Monitor for expected outcome, potential side effects: every shift, Assess barriers to learning: every shift, Assess readiness for medication education: every shift Family Contact Family involvement: No known Family/SO Discharge/Continuing Care - Education Needs Education Needs: Patient Medication, Patient Diagnosis/Disease Process, Patient Coping Skills, Patient Community resources, Patient Activities of Daily Living, Patient Nutrition, Patient Uses of Medical Equipment, Patient Health Practices/ Safety, Patient Personal Hygiene/Grooming, Patient Aftercare Safety Plan - Discharge Discharge Criteria: Tolerates medication w/o severe side effects, Free of Suicidal thoughts, Free of agitation, Normal sleep pattern, Ability to care for self, No longer exhibiting s/s of withdrawal, Reduction of target symptoms <Mariela Huitron - Last Filed: 04/30/17 16:11> - Diagnosis (1) Bipolar disorder Status: Acute Interventions: 04/30/17 16:11 Psychoeducation Psychopharmacology/adjustment of medications as needed/ monitoring possible side effects Monitor blood level of mood stabilizers Evaluate pt on daily basis Compliance with medications and follow up appointments Suicide and homicide risk assessment and prevention, coping strategies, safety plan Relapse prevention Reduction of symptoms Improve functional status Family involvement As outpatient: cognitive behavioral therapy (2) Drug abuse Status: Acute Interventions: 04/30/17 16:12 Monitoring withdrawal symptoms Medical detoxification Pharmacotherapy for alcohol/benzos/opioid dependence Maintaining sobriety Relapse prevention Possible rehabilitation Motivational interviewing 12-step programs: AA meetings <Carmen Iqbal - Last Filed: 04/30/17 16:21> Family Contact Family contact: Patient agrees to contact Family contact name: Cristina Armenta(girlfriend) [phone]) Family contacted how many times per week?: 2 - Outside Agency [facility] Care involvment: Information-sharing, Not involved Agency contact name: [facility] Agency contact number: [phone] [facility] Information-[facility] Agency contact name: [facility] Agency contact number: [phone] <Amrita Cantor - Last Filed: 05/01/17 11:50>
--- NOTE | 2017-04-30 16:09 | PCM.PYCHPN ---
Psychiatric Progress Note - Psychiatric Progress Note Patient seen today, length of contact: 30 minutes Patient Chief Complaint: "I feel the same" Medical Problems: please see medical team notes for more detailed information Diagnostic Results: 04/28/17 12:20 04/28/17 12:20 Lab Results 04/29/17 07:40: Triglycerides 91, Cholesterol 124 L, LDL Cholesterol Direct 64, HDL Cholesterol 41 04/29/17 07:40: Free T4 0.87, TSH 3rd Generation 1.09 04/29/17 07:40: RPR Nonreactive 04/28/17 12:20: Alcohol, Quantitative 95 H 04/28/17 12:20: Salicylates < 1 L, Acetaminophen < 10.0 L 04/28/17 12:20: Urine Opiates Screen Negative, Urine Methadone Screen Negative, Ur Barbiturates Screen Negative, Ur Phencyclidine Scrn Negative, Ur Amphetamines Screen Negative, U Benzodiazepines Scrn Negative, U Oth Cocaine Metabols Positive H, U Cannabinoids Screen Negative 04/28/17 12:20: Sodium 146, Potassium 4.0, Chloride 108 H, Carbon Dioxide 26, Anion Gap 16, BUN 12, Creatinine 0.9, Est GFR ( Amer) > 60, Est GFR (Non- Af Amer) > 60, Random Glucose 101, Calcium 9.5, Total Bilirubin 0.8, AST 28, ALT 41, Alkaline Phosphatase 93, Total Protein 7.4, Albumin 4.4, Globulin 3.0, Albumin/Globulin Ratio 1.5 04/28/17 12:20: Urine Color Light yellow, Urine Appearance Clear, Urine pH 6.0, Ur Specific [place] <= 1.005, Urine Protein Negative, Urine Glucose (UA) Negative, Urine Ketones Negative, Urine Blood Negative, Urine Nitrate Negative, Urine Bilirubin Negative, Urine Urobilinogen 0.2, Ur Leukocyte Esterase Negative 04/28/17 12:20: WBC 5.0, RBC 4.06, Hgb 12.7 L, Hct 38.4 L, MCV 94.6, MCH 31.3, MCHC 33.1, RDW 12.8, Plt Count 224, MPV 9.6, Gran % 47.9 L, Lymph % (Auto) 41.3 H, [place] % (Auto) 7.0 H, Eos % (Auto) 3.4, Baso % (Auto) 0.4, Gran # 2.40, Lymph # 2.1, [place] # 0.4, Eos # 0.2, Baso # 0.02 Vital Signs Temp Pulse Resp BP Pulse Ox 04/30/17 07:04 97.7 F 60 20 124/76 04/29/17 16:00 66 146/99 H 04/29/17 07:35 97.2 F L 58 L 16 121/77 04/29/17 06:00 58 L 18 113/81 04/28/17 16:12 98.3 F 83 16 131/81 04/28/17 15:05 82 16 140/82 100 04/28/17 12:28 98.6 F 88 16 138/78 100 DSM 5 Symptoms Update: Shortly pt is 41yo AAM with long h/o bipolar disorder, polysubstance abuse and dependence, h/o suicidal attempt (1999, pt cut his forearm), currently under care of [facility] Pastor, pt has h/o noncompliance with medications and f/u appts, pt was sent by [facility] for evaluation of possible suicidal ideation with the plan to "jump into the river", worsening of depression, pt was drinking alcohol and use cocaine on daily basis. Pt was seen today at the tx team meeting, presented with acceptable personal hygiene, good ADLs, but seems to be careless about his appearance. pt said that he feels "the same, I think medication is too heavy for me..", ativan will be decreased, pt reported he still hears voices, rispedal will be increased. as per staff pt is self isolative, not participating in unit activities, but no behavioral issues, no agitation. pt tolerates meds well, no side effects observed or reported, AIMS 0, no EPS. MSE: Pt deemed to be reliable historian, pt looks stated age, acceptable personal hygiene, good ADLs, there is some psychomotor retardation, speech was: underproductive, low volume, poor eye contact, mood described: "I feel the same ", affect was flat , thought process: concrete , thought content: reported to have SI, but contracted for safety during the interview, denied HI, pt reported to hear some whispers, but denied visual hallucinations, denied paranoid ideation, insight/judgment:fair, impulses are well controlled. Impression: as per h/o bipolar cocaine abuse alcohol dependence h/o antisocial personality Treatment plan: Milieu/structure/supportive therapy Medical consult appreciated, see medical team note for more detailed info SW consultation for discharge plan and social issues Med management ativan 2mg po q8h eric for alcohol withdrawals MVI, thiamine, folic acid trazodone 50mg po hs resumed for depression and insomnia discussed option to start naltrexone risperdal 1 mg po bid for psychosis and mood stabilization cogentin was resumed 0.5mg po tid for EPS prevention Family involvement Follow up on labs Will monitor closely SW evaluation for d/c planning Pt was educated about risk/benefits and alternatives of medications, coping strategies (safety plan, suicide prevention), relapse prevention, importance of follow up with psychiatrist and therapist, stay away from drugs/alcohol/smoking Medication Change: Yes (Risperdal increased, Ativan decreased) Medical Record Reviewed: Yes Consults ordered or reviewed: edical consult appreciated Mental Status Examination - Homicidal Ideation Homicidal Ideation: No Goal/Treatment Plan - Goal/Treatment Plan Need for Continued Stay: Remain at risks for inpatient hospitalization, Severe depression anxiety, Discharge may exacerbated symptoms, Severe functional impairment Estimated Date of D/C: 05/05/17 (we'll monitor closely)
[2017-05-01] MEDS: Multivitamin With Minerals Tab PO SCH (08:26)
--- NOTE | 2017-05-01 14:32 | PCM.PYCHPN ---
Psychiatric Progress Note - Psychiatric Progress Note Patient seen today, length of contact: 30 minutes Patient Chief Complaint: "I feel little better, withdrawals are getting better" Medical Problems: please see medical team notes for more detailed information Diagnostic Results: 04/28/17 12:20 04/28/17 12:20 Lab Results 04/29/17 07:40: Triglycerides 91, Cholesterol 124 L, LDL Cholesterol Direct 64, HDL Cholesterol 41 04/29/17 07:40: Free T4 0.87, TSH 3rd Generation 1.09 04/29/17 07:40: RPR Nonreactive 04/28/17 12:20: Alcohol, Quantitative 95 H 04/28/17 12:20: Salicylates < 1 L, Acetaminophen < 10.0 L 04/28/17 12:20: Urine Opiates Screen Negative, Urine Methadone Screen Negative, Ur Barbiturates Screen Negative, Ur Phencyclidine Scrn Negative, Ur Amphetamines Screen Negative, U Benzodiazepines Scrn Negative, U Oth Cocaine Metabols Positive H, U Cannabinoids Screen Negative 04/28/17 12:20: Sodium 146, Potassium 4.0, Chloride 108 H, Carbon Dioxide 26, Anion Gap 16, BUN 12, Creatinine 0.9, Est GFR ( Amer) > 60, Est GFR (Non- Af Amer) > 60, Random Glucose 101, Calcium 9.5, Total Bilirubin 0.8, AST 28, ALT 41, Alkaline Phosphatase 93, Total Protein 7.4, Albumin 4.4, Globulin 3.0, Albumin/Globulin Ratio 1.5 04/28/17 12:20: Urine Color Light yellow, Urine Appearance Clear, Urine pH 6.0, Ur Specific [place] <= 1.005, Urine Protein Negative, Urine Glucose (UA) Negative, Urine Ketones Negative, Urine Blood Negative, Urine Nitrate Negative, Urine Bilirubin Negative, Urine Urobilinogen 0.2, Ur Leukocyte Esterase Negative 04/28/17 12:20: WBC 5.0, RBC 4.06, Hgb 12.7 L, Hct 38.4 L, MCV 94.6, MCH 31.3, MCHC 33.1, RDW 12.8, Plt Count 224, MPV 9.6, Gran % 47.9 L, Lymph % (Auto) 41.3 H, [place] % (Auto) 7.0 H, Eos % (Auto) 3.4, Baso % (Auto) 0.4, Gran # 2.40, Lymph # 2.1, [place] # 0.4, Eos # 0.2, Baso # 0.02 Vital Signs Temp Pulse Resp BP Pulse Ox 04/30/17 07:04 97.7 F 60 20 124/76 04/29/17 16:00 66 146/99 H 04/29/17 07:35 97.2 F L 58 L 16 121/77 04/29/17 06:00 58 L 18 113/81 04/28/17 16:12 98.3 F 83 16 131/81 04/28/17 15:05 82 16 140/82 100 04/28/17 12:28 98.6 F 88 16 138/78 100 Temp Pulse Resp BP Pulse Ox 97.7 F 54 L 20 126/85 100 05/01/17 06:36 05/01/17 06:36 05/01/17 06:36 05/01/17 06:36 04/28/17 15:05 DSM 5 Symptoms Update: Shortly pt is 41yo AAM with long h/o bipolar disorder, polysubstance abuse and dependence, h/o suicidal attempt (1999, pt cut his forearm), currently under care of [facility] Pastor, pt has h/o noncompliance with medications and f/u appts, pt was sent by [facility] for evaluation of possible suicidal ideation with the plan to "jump into the river", worsening of depression, pt was drinking alcohol and use cocaine on daily basis. Pt was seen today next to the nursing station, pt present to have some improvement with his symptoms, pt reported no withdrawals from alcohol, no UE shakes, pt's affect more reactive, psychosis is improving "there is only whispers at times". as per staff pt is more visible in the unit, started to participate in unit activities, no behavioral issues, no agitation. pt tolerates meds well, no side effects observed or reported, AIMS 0, no EPS. MSE: Pt deemed to be reliable historian, pt looks stated age, acceptable personal hygiene, good ADLs, there is some psychomotor retardation, speech was: underproductive, low volume, better eye contact, mood described: "I feel little better", affect was more reactive, mood congruent, thought process: concrete , thought content:denied SI/HI, pt reported to hear some whispers, but denied visual hallucinations, denied paranoid ideation, insight/judgment:fair, impulses are well controlled. Impression: as per h/o bipolar cocaine abuse alcohol dependence h/o antisocial personality Treatment plan: Milieu/structure/supportive therapy Medical consult appreciated, see medical team note for more detailed info SW consultation for discharge plan and social issues Med management ativan 1mg po tid for alcohol withdrawals with the plan to wean it off MVI, thiamine, folic acid trazodone 50mg po hs resumed for depression and insomnia naltrexone 50mg po daily started risperdal 1 mg po bid for psychosis and mood stabilization cogentin 0.5mg po bid for EPS prevention Family involvement Follow up on labs Will monitor closely SW evaluation for d/c planning Pt was educated about risk/benefits and alternatives of medications, coping strategies (safety plan, suicide prevention), relapse prevention, importance of follow up with psychiatrist and therapist, stay away from drugs/alcohol/smoking Medication Change: Yes (Ativan decreased, naltrexone started) Medical Record Reviewed: Yes Consults ordered or reviewed: edical consult appreciated Mental Status Examination - Homicidal Ideation Homicidal Ideation: No Goal/Treatment Plan - Goal/Treatment Plan Need for Continued Stay: Remain at risks for inpatient hospitalization, Severe depression anxiety, Discharge may exacerbated symptoms, Severe functional impairment Estimated Date of D/C: 05/05/17 (we'll monitor closely)
[2017-05-02 06:41] VITALS: BP 122/75; PULSE 57; TEMP 97.6
[2017-05-02] MEDS: Multivitamin With Minerals Tab PO SCH (08:47)
--- NOTE | 2017-05-02 19:02 | PN ---
DATE: Covering for Dr. Huitron. SUBJECTIVE: The patient is a 41-year-old male with a history of bipolar disorder along with polysubstance abuse and dependence and one known suicide attempt in 1999 (forearm cutting) who is presently under the care of nurse [facility]it at the [facility]. He has a history of noncompliance, however, with medication and appointments. He had come to the emergency room for possible suicidal ideation of wanting to "jump into the river" and feeling that his depression was worsening. He is also drinking alcohol and using cocaine on a daily basis. He presently is indicating that he wants to leave. He had been lethargic earlier in the week but now is awake, indicates that he had been dealing with issues of depression and response to his substance use, but feels ready to leave. He was counseled to stay, but as the patient was not exhibiting suicidal or homicidal thoughts or psychotic ideation, his desire to leave was adhered to. He had been under my care in 2011. The patient was allowed to leave against medical advice. He had been maintained in the hospital on Ativan 1 mg q.i.d., Cogentin 1 mg b.i.d., folic acid 1 mg daily, Nicoderm patch, ReVia 50 mg daily, Risperdal 1 mg b.i.d. The patient left the hospital against medical advice. Adrián Chen MD/ PhD
== END 2017-05-02 16:56 | disposition left against medical advice (07) | DRG 885 ==
LOC: ED 11:51 → ERH 13:40 → PSYC 15:19
PROVIDERS: ADMIT Psychiatry & Neurology Psychiatry; ATTEND Psychiatry & Neurology Psychiatry
DX: F31.9 Bipolar disorder, unspecified (principal); F10.239 Alcohol dependence with withdrawal, unspecified; I10 Essential (primary) hypertension; F60.2 Antisocial personality disorder; F14.10 Cocaine abuse, uncomplicated; M54.9 Dorsalgia, unspecified; G89.29 Other chronic pain; Y90.4 Blood alcohol level of 80-99 mg/100 ml; Z88.0 Allergy status to penicillin; Z91.19 Patient's noncompliance with other medical treatment and regimen; Z91.14 Patient's other noncompliance with medication regimen

== ENCOUNTER 2017-05-25 21:10 | Emergency (ER) | payer MEDICAID, MEDICARE ==
[2017-05-25 21:11] VITALS: BMI 29.3
[2017-05-25 21:44] VITALS: TEMP 97.6
--- NOTE | 2017-05-25 22:00 | ED PDOC ---
Arrival/HPI - General Chief Complaint: Chest Pain Time Seen by Provider: 05/25/17 21:22 Historian: Patient - History of Present Illness Narrative History of Present Illness (Text): 05/25/17 21:22 Amadeo Reilly is a 41 year old male brought in by Rebecca PFEIFFER under arrest, whose past medical history includes substance abuse, possible sociopathy, and possible schizophrenia, who presents to the emergency department complaining of chest pain for 2 months. The chest pain is described as sharp, sometimes worse with cough. Patient endorses that his last cocaine use was two days ago. Patient admits to drinking significant amounts of alcohol earlier this evening. Patient denies any suicidal ideation or any other complaints at this time. Time/Duration: > month Symptom Onset: Gradual Symptom Course: Unchanged Activities at Onset: Light Context: Home Past Medical History - Provider Review Nursing Documentation Reviewed: Yes - Past History Past History: No Previous - Infectious Disease Hx of Infectious Diseases: None - Tetanus Immunization Tetanus Immunization: Unknown - Past Medical History Past Medical History: No Previous - Cardiac Hx Cardiac Disorders: Yes Hx Angina: No Hx Cardiac Arrhythmia: No Hx Circulatory Problems: No Hx Congestive Heart Failure: No Hx Heart Murmur: No Hx Heart Transplant: No Hx Hypertension: Yes Hx Internal Defibrillator: No Hx Mitral Valve Prolapse: No Hx Pacemaker: No Hx Peripheral Edema: No Hx Peripheral Vascular Disease: No - Pulmonary Hx Respiratory Disorders: No Hx Asthma: No Hx Bronchitis: No Hx Chronic Obstructive Pulmonary Disease (COPD): No Hx Emphysema: No Hx Pneumonia: No Hx Respiratory Aspiration: No Hx Respiratory Tract Infection: No Hx Sleep Apnea: No Hx Tuberculosis: No - Neurological Hx Neurological Disorder: No Hx Alzheimer's Disease: No HX Cerebrovascular Accident: No Hx Dementia: No Hx Dizziness: No Hx Meningitis: No Hx Migraine: No Hx Parkinson's Disease: No Hx Seizures: No Hx Transient Ischemic Attacks (TIA): No - HEENT Hx HEENT Disorder: No Hx Cataracts: No Hx Deafness: No Hx Difficulty Chewing: No Hx Epistaxis: No Hx Glaucoma: No Hx Macular Degeneration: No - Renal Hx Renal Disorder: No Hx Kidney Stones: No Hx Neurogenic Bladder: No Hx Pyelonephritis: No Hx Renal Cancer: No Hx Renal Failure: No - Endocrine/Metabolic Hx Endocrine Disorders: No Hx Adrenal Cancer: No Hx Diabetes Insipidus: No Hx Diabetes Mellitus Type 1: No Hx Diabetes Mellitus Type 2: No Hx Hyperthyroidism: No Hx Hypothyroidism: No Hx Systemic Lupus Erythematosus: No - Hematological/Oncological Hx Blood Disorders: No Hx AIDS: No Hx Anemia: No Hx Cancer: No Hx Chemotherapy: No Hx Cirrhosis: No Hx Hemophilia: No Hx Hepatitis A: No Hx Hepatitis B: No Hx Hepatitis C: No Hx Metastasis: No Hx Shingles: No Hx Sickle Cell Disease: No Hx Unexplained Bleeding: No - Integumentary Hx Dermatological Disorder: No Hx Basal Cell Carcinoma: No Hx Eczema: No Hx Melanoma: No Hx Psoriasis: No Hx Squamous Cell Carcinoma: No - Musculoskeletal/Rheumatological Hx Musculoskeletal Disorders: Yes Hx Arthritis: No Hx Back Pain: Yes Hx Degenerative Joint Disease: No Hx Falls: No Hx Fractures: No Hx Gout: No Hx Herniated Disk: No Hx Myasthenia Gravis: No Hx Osteoarthritis: No Hx Osteomyelitis: No Hx Osteoporosis: No Hx Rhabdomyolysis: No Hx Spinal Stenosis: No Hx Unsteady Gait: No - Gastrointestinal Hx Gastrointestinal Disorders: No Hx Colostomy: No Hx Crohn's Disease: No Hx Diverticulitis: No Hx Gall Bladder Disease: No Hx Gastroesophageal Reflux: No Hx Ileostomy: No Hx Liver Failure: No Hx Pancreatitis: No HX Swallowing Problems: No - Genitourinary/Gynecological Hx Genitourinary Disorders: No Hx Hematuria: No Hx Incontinence: No Hx Prostate Problems: No Hx Reproductive Disorders: No Hx Sexually Transmitted Diseases: No Hx Urinary Tract Infection: No - Psychiatric Hx Depression: Yes Hx Substance Use: Yes - Past Surgical History Past Surgical History: No Previous - Surgical History Hx Amputation: No Hx Appendectomy: No Hx Cardiac Catheterization: No Hx Cholecystectomy: No Hx Coronary Stent: No Hx Gastric Bypass Surgery: No Hx Hysterectomy: No Hx Joint Replacement: No Hx Kidney Transplant: No Hx Liver Transplant: No Hx Mastectomy: No Hx Musculoskeletal Surgery: No Hx Open Heart Surgery: No Hx Orthopedic Surgery: No Hx Splenectomy: No Hx Valve Replacement: No - Anesthesia Hx Anesthesia: No - Suicidal Assessment Feels Threatened In Home Enviroment: No Family/Social History - Physician Review Nursing Documentation Reviewed: Yes Family/Social History: No Known Family HX Smoking Status: Heavy Smoker > 10 Cigarettes Daily Hx Alcohol Use: Yes Amount per day: 1 Hx Substance Use: Yes Hx Substance Use Treatment: No Allergies/Home Meds Allergies/Adverse Reactions: Allergies Penicillins Allergy (Verified 04/28/17 19:07) ANAPHYLAXIS Review of Systems - Physician Review All systems were reviewed & negative as marked: Yes - Review of Systems Constitutional: absent: Fevers, Night Sweats Eyes: absent: Vision Changes ENT: absent: Hearing Changes Respiratory: Cough. absent: SOB Cardiovascular: Chest Pain Gastrointestinal: absent: Abdominal Pain Genitourinary Male: absent: Dysuria, Frequency Musculoskeletal: absent: Arthralgias Skin: absent: Rash, Pruritis Neurological: absent: Headache, Dizziness Endocrine: absent: Diaphoresis Hemo/Lymphatic: absent: Adenopathy Psychiatric: absent: Depression Physical Exam Vital Signs Reviewed: Yes Vital Signs Temp Pulse Resp BP Pulse Ox 05/25/17 21:20 97.6 F 85 18 123/75 97 Temperature: Afebrile Blood Pressure: Normal Pulse: Regular Respiratory Rate: Normal Appearance: Positive for: Well-Appearing, Non-Toxic, Comfortable, Other (AOB) Pain Distress: None Mental Status: Positive for: Alert and Oriented X 3 - Systems Exam Head: Present: Atraumatic, Normocephalic Pupils: Present: PERRL Conjunctiva: Present: Normal Mouth: Present: Moist Mucous Membranes Pharnyx: Present: Normal. No: ERYTHEMA, EXUDATE Neck: Present: Normal Range of Motion Respiratory/Chest: Present: Clear to Auscultation, Good Air Exchange. No: Respiratory Distress, Accessory Muscle Use Cardiovascular: Present: Regular Rate and Rhythm, Normal S1, S2. No: Murmurs Abdomen: Present: Normal Bowel Sounds. No: Tenderness, Distention, Peritoneal Signs Back: Present: Normal Inspection Upper Extremity: Present: Normal Inspection. No: Cyanosis, Edema Lower Extremity: Present: Normal Inspection. No: Edema Neurological: Present: GCS=15, CN II-XII Intact, Speech Normal Skin: Present: Warm, Dry, Normal Color. No: Rashes Psychiatric: Present: Alert, Oriented x 3, Normal Insight, Normal Concentration Medical Decision Making ED Course and Treatment: 05/25/17 22:21 Impression: 41 year old male complaining of chest pain for 2 months. Differential Diagnosis included but are not limited to: cocaine-induced cp vs muscular chest pain vs less likely acs Plan: -- EKG -- Chest X-ray -- Labs -- Reassess and disposition Prior Visits: Notes and results from previous visits were reviewed. Patient was last seen in the emergency department on 04/28/17 for depression. Patient was admitted to hospitalist care for further evaluation. Progress Notes: 05/26/17 01:06 Patient under arrest with atypical chest pain x 2 months. EKG is normal and unchanged with negative CE. Patient with etoh abuse with level of 220 and admits to cocaine use 2 days ago. Since it has been two days since cocaine use , he does not need additional CE. Patient instructed to stop cocaine use, yet he insists that the cocaine has nothing to do with it. As there are no acute findings at this time, the patient will need to follow up with primary care for additional evaluation and treatment and has been encouraged to stop cocaine use. He also denies any SI or HI or psychosis. No indication for psych workup. He will be released in police custody. - Lab Interpretations Lab Results: 05/25/17 23:25 05/25/17 23:25 Lab Results 05/25/17 23:25: Alcohol, Quantitative 220 H 05/25/17 23:25: Sodium 145, Potassium 4.1, Chloride 107, Carbon Dioxide 25, Anion Gap 17, BUN 16, Creatinine 1.1, Est GFR ( Amer) > 60, Est GFR (Non- Af Amer) > 60, Random Glucose 108, Calcium 9.2, Magnesium 2.1, Total Bilirubin 1.3, AST 42, ALT 50, Alkaline Phosphatase 110, Lactate Dehydrogenase 558, Total Creatine Kinase 408 H, CK-MB (CK-2) 2.2, CK-MB (CK-2) % Cancelled, Troponin I < 0.01, NT-Pro-B Natriuret Pep < 11.1, Total Protein 7.4, Albumin 4.3, Globulin 3.1, Albumin/Globulin Ratio 1.4, Lipase 42 05/25/17 23:25: PT 10.4, INR 0.96, APTT 29.1 05/25/17 23:25: WBC 5.9, RBC 4.01, Hgb 12.7 L, Hct 38.1 L, MCV 95.0, MCH 31.7, MCHC 33.3, RDW 12.9, Plt Count 218, MPV 9.4, Gran % 56.8, Lymph % (Auto) 33.5, [place] % (Auto) 5.1, Eos % (Auto) 4.1, Baso % (Auto) 0.5, Gran # 3.32, Lymph # 2.0 , [place] # 0.3, Eos # 0.2, Baso # 0.03 I have reviewed the lab results: Yes - RAD Interpretation Narrative RAD Interpretations (Text): 05/26/17 01:09 CXR: nad as read by me. Radiology Orders: 05/25/17 21:57 CHEST PORTABLE [RAD] Stat - EKG Interpretation EKG Interpretation (Text): 05/26/17 01:08 NSR @ 85; normal intervals; normal axis; no ST/T changes c/w ekg on 04/28/17. Interpreted by ED Physician: Yes Type: 12 lead EKG Comparison: Similar to previous EKG - Medication Orders Current Medication Orders: Discontinued Medications Ketorolac Tromethamine (Toradol) 30 mg IVP STAT STA Stop: 05/26/17 00:25 - Scribe Statement The provider has reviewed the documentation as recorded by the Scribe Shila Morales Provider Scribe Attestation: All medical record entries made by the Scribe were at my direction and personally dictated by me. I have reviewed the chart and agree that the record accurately reflects my personal performance of the history, physical exam, medical decision making, and the department course for this patient. I have also personally directed, reviewed, and agree with the discharge instructions and disposition. Disposition/Present on Arrival - Present on Arrival Any Indicators Present on Arrival: No History of DVT/PE: No History of Uncontrolled Diabetes: No Urinary Catheter: No History of Decub. Ulcer: No History Surgical Site Infection Following: None - Disposition Have Diagnosis and Disposition been Completed?: Yes Diagnosis: Atypical chest pain, Drug abuse Disposition: RELEASED IN [employer] Disposition Time: 01:05 Patient Plan: Discharge Patient Problems: Current Active Problems Problem Status Onset Atypical chest pain Acute Drug abuse Chronic Condition: GOOD Discharge Instructions (ExitCare): Cocaine Abuse (ED) Additional Instructions: Stop cocaine and all drug use as well as smoking. Follow up with your primary care doctor. Return to the emergency department if any new concerning symptoms. Prescriptions: Ibuprofen [Motrin Tab] 1 tab PO Q8H PRN #20 tab PRN Reason: Pain, Moderate (4-7) Referrals: Adan Traore JD, MD [Primary Care Provider] - Follow up with primary Forms: [employer] (Slovak), WORK NOTE
[2017-05-25 23:44] LABS: BASO # 0.03 K/mm3 (0.0-2.0); BASO % 0.5 % (0.0-3.0); EOS # 0.2 (0.0-0.7); EOS % 4.1 % (1.5-5.0); GRAN # 3.32 (1.4-6.5); GRAN % 56.8 % (50.0-68.0); HEMATOCRIT 38.1 % (42.0-52.0); LYMPH % 33.5 % (22.0-35.0); MEAN CORPUSCULAR HEMOGLOBIN 31.7 pg (25.0-35.0); MEAN CORPUSCULAR HGB CONC 33.3 g/dl (31.0-37.0); MEAN PLATELET VOLUME 9.4 fl (7.0-11.0); MONO # 0.3 (0.1-0.6); MONO % 5.1 % (1.0-6.0); RED CELL DISTRIBUTION WIDTH 12.9 % (11.5-14.5); WHITE BLOOD COUNT 5.9 10^3/ul (4.5-11.0)
[2017-05-25 23:54] LABS: INR 0.96 (0.93-1.08)
[2017-05-25 23:58] LABS: ALB/GLOB RATIO 1.4 (1.1-1.8); ALKALINE PHOSPHATASE 110 U/L (38-126); ALT/SGPT 50 U/L (7-56); AST/SGOT 42 U/L (17-59); BILIRUBIN,TOTAL 1.3 mg/dL (0.2-1.3); BLOOD UREA NITROGEN 16 mg/dL (7-21); CALCIUM 9.2 mg/dL (8.4-10.5); CARBON DIOXIDE 25 mmol/L (21-33); CHLORIDE 107 mmol/L (98-107); GFR AFRICAN-AMERICAN > 60; GLUCOSE,RANDOM 108 mg/dL (70-110); LIPASE 42 U/L (23-300); MAGNESIUM 2.1 mg/dL (1.7-2.2); POTASSIUM 4.1 mmol/L (3.6-5.0); SODIUM 145 mmol/L (132-148); TOTAL PROTEIN 7.4 g/dL (5.8-8.3)
[2017-05-25 23:59] LABS: PARTIAL THROMBOPLASTIN TIME 29.1 Seconds (25.1-36.5)
[2017-05-26 00:14] LABS: TROPONIN I < 0.01 ng/mL
[2017-05-26 01:25] VITALS: BP 135/80; PULSE 78; RESP 16; O2SAT 99
--- NOTE | 2017-05-26 08:25 | RAD ---
HISTORY: chest pain COMPARISON: 04/28/2017 FINDINGS: LUNGS: No active pulmonary disease. PLEURA: No significant pleural effusion identified, no pneumothorax apparent. CARDIOVASCULAR: Normal. OSSEOUS STRUCTURES: No significant abnormalities. VISUALIZED UPPER ABDOMEN: Normal. OTHER FINDINGS: None. IMPRESSION: No active disease.
--- NOTE | 2017-05-26 10:12 | CARD ---
APPROVED REPORT EKG Measurement Heart [id number] <Conclusion> Normal sinus rhythm Normal ECG
== END 2017-05-26 01:26 ==
LOC: ED 21:10
DX: R07.89 Other chest pain (principal); F19.10 Other psychoactive substance abuse, uncomplicated; I10 Essential (primary) hypertension; Z88.0 Allergy status to penicillin; F17.210 Nicotine dependence, cigarettes, uncomplicated
CPT/HCPCS: 71010; 80053; 82550; 82553; 83615; 83690; 83735; 83880; 84484; 85025; 85610; 85730; 93005; 96374; 99283; G0480; J1885